=== PATIENT | male | born 1985 | race Caucasian/White ===

== ENCOUNTER 2019-02-24 17:40 | Emergency (ER) | payer MEDICAID ==
[~2019-02-24] VITALS: Ht 172.7 cm; Wt 64.0 kg
[2019-02-24 17:54] VITALS: BP 123/74
== END 2019-02-24 18:22 | disposition home or self-care (01) ==
LOC: ED 18:00
DX: K02.9 Dental caries, unspecified (principal)
CPT/HCPCS: 99283